=== PATIENT | male | born 1985 | race Caucasian/White ===

== ENCOUNTER 2017-06-26 08:49 | Emergency (ER) | payer OTHER ==
--- NOTE | 2017-06-26 09:44 | ERNOTE ---
ENT HPI Presenting Symptoms: eye pain - with injection Time Seen by Provider: 06/26/17 09:34 Source: patient Exam Limitations: no limitations - Immun/Allergies/Home Medications Immunizations: IMMUNIZATION HX Immunizations Up to Date No History of Influenza Vaccine No Hx Pneumococcal Vaccination No Allergies/Adverse Reactions: Allergies Allergy/AdvReac Type Severity Reaction Status Date / Time No Known Allergies Allergy Unverified 06/26/17 09:18 Home Medications: HOME MEDICATIONS Ketorolac Tromethamine [Acular] 1 drop EACHEYE QID #3 ml 06/26/17 [Last Taken Unknown] Multivitamin [Multivitamins] 1 each PO DAILY 06/26/17 [Last Taken Unknown] Polymyxin B Sulf/Trimethoprim [Polytrim Eye Drops] 2 drop LEFTEYE QID #10 ml 08/10 [Last Taken Unknown] - History of Present Illness Narrative: Patient left his contacts in for over a month and noticed morning when he got up that his eyes were irritated, mattered and were injected Severity: Present: moderate ENT Location: Present: eye (R), eye (L) Prearrival Treatment: Present: no prearrival treatment Modifying Factors - Improves: Reports: nothing - other than taking his contacts out Modifying Factors - Worsens: Reports: nothing Associated Symptoms - ENT: Reports: denies symptoms Review of Systems - Review of Systems Constitutional: Present: See HPI EYE: Present: see HPI ENT: Present: no symptoms reported Respiratory: Present: no symptoms reported Cardiology: Present: no symptoms reported Gastrointestinal/Abdominal: Present: no symptoms reported Genitourinary: Present: no symptoms reported Musculoskeletal: Present: no symptoms reported Skin: Present: no symptoms reported Neurological: Present: no symptoms reported Endocrine: Present: no symptoms reported Hematologic/Lymphatic: Present: no symptoms reported Psych: Present: no symptoms reported - Patient's Past Medical History Patient History - Medical: No pertinent hx Patient History - Cardiac/Respiratory: No pertinent hx Patient History - Cancer: No Hx of Cancer Patient History - Surgical Procedures: No surgical history Patient History - Other: None - Family History Mother Family History - Medical: No pertinent hx Family History - Cardiac/Respiratory: No pertinent hx Family History - Cancer: No pertinent family hx Father Family History - Medical: No pertinent hx Family History - Cardiac/Respiratory: No pertinent hx Family History - Cancer: No pertinent family hx - Social History Living Situations: alone Abuse History: No History of abuse Psych History: No pertinent hx Smoking Status: Former smoker Have you smoked in the past 12 months: No Do you dip or chew tobacco: No Patient requests Smoking Cessation Consult: No Initiate information on Smoking Cessation: No Alcohol Use: none Drug Use: none - Immunizations Immunizations Up to Date: No Hx Pneumococcal Vaccination: No History of Influenza Vaccine: No Physical Exam - Physical Exam General Appearance: Present: wd/wn, alert, mild distress Head Exam: Present: normal inspection, no evidence of injury Eye Exam: PERRL: bilateral, EOMI: bilateral, Sclera injection: bilateral Ears, Nose, Throat: Present: normal ENT inspection, H, normal pharynx Neck: Present: normal inspection, nontender Respiratory: Present: no respiratory distress, normal breath sounds, no accessory muscle use, chest nontender, lungs clear Cardiovascular/Chest: Present: regular rate, rhythm, no murmur, normal peripheral pulses Gastrointestinal/Abdominal: Present: normal bowel sounds, nontender, nondistended, soft, no organomegaly Rectal Exam: Present: deferred Back Exam: Present: normal inspection, normal range of motion Extremity Exam: Present: normal inspection, non-tender, no edema, normal range of motion Neurological Exam: Present: alert, oriented, normal mood/affect Skin Exam: Present: normal color, warm/dry Lymphatic Exam: Present: no adenopathy ED Progress - Vital Signs Patient's Vital Signs:: I have reviewed the patient's vital signs. Vital Signs: Vital Signs 06/26/17 06/26/17 09:18 09:24 Temperature 36.3 C L 36.3 C L Pulse Rate 62 62 Respiratory 18 18 Rate Blood Pressure 115/76 115/76 - Progress/Reassessment Chief Complaint: Eye Injury/Trauma Plan - Plan Plan: Patient be started on Polytrim and Acular. He will alternate drops back-and- forth for no more than 4 days Departure Clinical Impression: Conjunctivitis Qualifiers: Conjunctivitis type: acute Acute conjunctivitis type: unspecified Laterality: bilateral Qualified Code(s): H10.33 - Unspecified acute conjunctivitis, bilateral - Departure Disposition: Home self-care Condition: Good Instructions: Bacterial Conjunctivitis, [id number], Contact Precautions, Easy -to-Read Prescriptions: Ketorolac Tromethamine [Acular] 1 drop EACHEYE QID #3 ml Polymyxin B Sulf/Trimethoprim [Polytrim Eye Drops] 2 drop LEFTEYE QID #10 ml
[2017-06-26 10:09] VITALS: BP 115/87
== END 2017-06-26 10:08 | disposition home or self-care (01) ==
LOC: ER 08:49
DX: Z87.891 Personal history of nicotine dependence; H10.33 Unspecified acute conjunctivitis, bilateral